=== PATIENT | male | born 2000 | race Hispanic/Latino ===

== ENCOUNTER 2023-07-27 20:33 | Emergency (ER) | payer MEDICAID ==
[~2023-07-27] VITALS: Ht 175.3 cm; Wt 90.7 kg
[2023-07-27] MEDS ORDERED: LIDOCAINE HCL 1% 20 ML VIAL INJ SCH (21:30)
[2023-07-27 21:43] VITALS: BP 114/50; PULSE 78; RESP 14; O2SAT 97
[2023-07-27] MEDS ORDERED: TETANUS/DIPHTHERIA TOXOID [ADULT] 0.5 ML VIAL IM ONE (22:00)
== END 2023-07-27 21:47 | disposition home or self-care (01) ==
LOC: EDH 20:33
DX: S60.552A Superficial foreign body of left hand, initial encounter (principal); X58.XXXA Exposure to other specified factors, initial encounter; Y93.89 Activity, other specified; Y92.89 Other specified places as the place of occurrence of the external cause; Y99.8 Other external cause status
CPT/HCPCS: 90471; 90714